=== PATIENT | male | born 1955 | race Caucasian/White ===

== ENCOUNTER 2019-10-16 14:25 | Inpatient (IN) ==
[2019-10-16] MEDS ORDERED: SODIUM CHLORIDE 0.9% 1000ML 2,000 ML IV ONE (14:41)
--- NOTE | 2019-10-16 14:41 | Emergency Department Note ---
Impression & Plan Sepsis, Fall, Elevated lactic acid level, Weakness ED Provider Note NAME: SABINO MAK AGE: 64 SEX: M : 1955 ARRIVES VIA: Ambulance INFORMANT: Patient ED PROVIDER(S): Gama Moss DO CHIEF COMPLAINT: fall feeling weak HPI: Patient is a 64-year-old male who presents the ER for a fall. He was getting out of his lift chair and fell down onto his knees and right elbow. He notes that he has felt weak. He did admit to some mild nausea. No vomiting. No headache or neck pain. Denies hitting his head. No chest pain, cough or runny nose. Denies any fevers. No open wounds or sores. No other exacerbating or remitting factors. Patient denies any headache, neck pain, dysuria urgency or frequency. No other complaints at this time. ROS: See above HPI for pertinent positives & negatives. A total of 10 systems reviewed and were otherwise negative. PAST MEDICAL HISTORY:See Below PAST SURGICAL HISTORY:See Below FAMILY HISTORY:See Below SOCIAL HISTORY:See Below HOME MEDICATIONS:See Below ALLERGIES:See Below VITALS:See Below PHYSICAL EXAMINATION: GENERAL: Sitting up in bed, alert, obese, disheveled, nontoxic HEAD: NC/AT EYE EXAM: normal conjunctiva. PERRL and EOM's grossly intact. OROPHARYNX: no exudate, no erythema, lips, buccal mucosa, and tongue normal and mucous membranes are moist NECK: supple, no nuchal rigidity, no adenopathy, non-tender LUNGS: Clear to auscultation. Normal chest wall mechanics HEART: no murmurs, S1 normal and S2 normal ABDOMEN: abdomen soft, non-tender, normo-active bowel sounds, no masses, no rebound or guarding. BACK: Back is symmetrical on inspection and there is no deformity, no midline tenderness, no CVA tenderness. SKIN: no rashes and no bruising UPPER EXTREMITIES: Full active and passive range of motion of shoulders, elbows, wrists and digits. Abrasion over right elbow with a small bruising. LOWER EXTREMITIES: Full active and passive range of motion of bilateral hips, knees, ankles and EHL. Abrasions over bilateral knees. No bleeding. NEURO EXAM: Normal sensorium, cranial nerves II-XII grossly intact, normal speech, no gross weakness of arms, no gross weakness of legs. MEDICAL DECISION MAKING: Patient is a 64-year-old male who presents the ER for mechanical fall for weakness. Upon presentation IV wasblood work was obtained. Vitals show that he was tachycardic in the 120s and febrile. Labs shows a leukocytosis of 19,000. No significant anemia. INR was unremarkable. BMP with mild hypokalemia. Lactate was elevated 2.6. Troponin was elevated 0.115. UA with nitrates, white cells and bacteria. X-rays of his bilateral knees and elbow show no acute fractures. CT abdomen pelvis shows no acute pathology. Patient was given IV fluids and IV Zosyn. He was updated bedside. Discussed the hospitalist patient was admitted for sepsis secondary to UTI with demand ischemia. Triage Nursing notes reviewed. Prior medical records reviewed Vital Signs: reviewed and remarkable for febrile and tachycardic Differential diagnosis: Differential diagnosis includes etiologies such as sepsis, UTI, pneumonia, metabolic, electrolyte abnormalities, cardiac sources, intracerebral event, toxicologic, neurological, as well as others were entertained. ER treatment provided: See below Diagnostics interpreted by me: ECG: Sinus tachycardia rate of 123 Left axis T WI in high lateral leads Normal QTC No old to compare Cardiac Monitoring: An order was placed for continuous cardiac monitoring. The monitor shows a rate of 101 with sinus rhythm. Laboratory studies: As stated above and show below. Imaging studies: CT abdomen pelvis shows no acute pathology. X-rays of the bilateral knees and right elbow shows no fracture. Consultation(s): Discussed with Dr. Olga Raphael for admission. ED COURSE: Procedures: none Critical Care: I have personally spent 31 minutes of critical care time in the direct management of this patient. This includes bedside care, interpretation of diagnostic studies, and testing, discussion with consultants, patient, and family members, and other required patient management activities. This 31 minutes is in excess of all separately billable procedures. Past Med/Surg History Medical History Anxiety and depression BPH (benign prostatic hyperplasia) Deep vein thrombosis 2009 (WAS ON COUMADIN, UNSURE OF REASON) Degenerative disc disease Diabetes mellitus, type 2 GERD (gastroesophageal reflux disease) Gout Hyperlipidemia Hypertension Macular degeneration Osteoarthritis Peripheral neuropathy Poor historian PVD (peripheral vascular disease) WEARS STOCKINGS Sleep apnea CPAP Surgical History History of appendectomy History of colonoscopy History of esophagogastroduodenoscopy (EGD) History of right cataract extraction History of tonsillectomy History of tooth extraction Family History Other Unknown family medical history Social History Preferred Language: Faroese Communication Ability: Impaired 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 Beliefs That Will Affect Care: None Current Living Situation: Alone Other Information That Helps Us Care for You: No Feels Safe at Home: Yes Safety Concerns: Feels Safe At This Time Smoking Status: Never smoker Second Hand Exposure: No ; Hx Alcohol Use: No Hx Substance Use: No Allergies Allergies Allergy/AdvReac Type Severity Reaction Status Date / Time latex Allergy Severe "CAN'T Verified 10/16/19 15:02 BREATHE" ibuprofen Allergy Mild STOMACH Verified 10/16/19 15:02 UPSET Home Meds Home Medications Medication Instructions Recorded Confirmed Durezol 1 drp OPR QAM 01/18/19 10/16/19 Gralise 1,800 mg PO QAM 01/18/19 10/16/19 [place]-3 2 cap PO BID 01/18/19 10/16/19 Tradjenta 5 mg PO DAILY 01/18/19 10/16/19 atorvastatin 40 mg PO HS 01/18/19 10/16/19 calcium carbonate [Tums] 200 mg PO BID PRN 01/18/19 10/16/19 fluticasone propionate 1 spray INTRANASAL DAILY 01/18/19 10/16/19 meloxicam 15 mg PO DAILY 01/18/19 10/16/19 oxybutynin chloride 5 mg PO BID 01/18/19 10/16/19 triamcinolone acetonide 1 applic TOPICAL DIRECTED 10/16/19 10/16/19 valsartan-hydrochlorothiazide 1 tab PO QAM 10/16/19 10/16/19 [Diovan HCT] Results & Data (ED) Vital Signs Vital Signs - 24 hr 10/16/19 14:43 10/16/19 14:56 10/16/19 15:33 Temperature 38.3 C H Temperature Source Oral Pulse Rate 112 H 103 H Pulse Rate from SpO2 Sensor 105 H Respiratory Rate 16 24 Respiratory Effort / Characteristics Non-Labored Spontaneous Respiratory Depth Normal Respiratory Pattern Regular Blood Pressure 113/58 L 95/51 L Blood Pressure Mean 76 70 Blood Pressure Position Lying Pulse Oximetry 93 93 93 Oxygen Delivery Method Room Air Room Air Sepsis Recent Fever Within 48 Hours Yes Sepsis New/Unexplained Change in Mental Status No Sepsis Action Taken by Nursing No Action Required 10/16/19 15:40 10/16/19 16:30 10/16/19 16:36 Temperature 37.6 C H Temperature Source Oral Pulse Rate 108 H 97 H Pulse Rate from SpO2 Sensor 95 H Respiratory Rate 24 22 Respiratory Effort / Characteristics Respiratory Depth Respiratory Pattern Blood Pressure 122/65 109/70 Blood Pressure Mean 84 88 Blood Pressure Position Pulse Oximetry 95 94 Oxygen Delivery Method Sepsis Recent Fever Within 48 Hours Sepsis New/Unexplained Change in Mental Status Sepsis Action Taken by Nursing 10/16/19 17:00 10/16/19 17:30 10/16/19 18:00 Temperature Temperature Source Pulse Rate 91 H 90 90 Pulse Rate from SpO2 Sensor 90 Respiratory Rate 24 26 H 30 H Respiratory Effort / Characteristics Respiratory Depth Respiratory Pattern Blood Pressure 126/58 L 111/57 L 116/54 L Blood Pressure Mean 79 67 82 Blood Pressure Position Pulse Oximetry 93 92 92 Oxygen Delivery Method Sepsis Recent Fever Within 48 Hours Sepsis New/Unexplained Change in Mental Status Sepsis Action Taken by Nursing 10/16/19 18:18 Temperature 37.1 C Temperature Source Pulse Rate Pulse Rate from SpO2 Sensor Respiratory Rate Respiratory Effort / Characteristics Respiratory Depth Respiratory Pattern Blood Pressure Blood Pressure Mean Blood Pressure Position Pulse Oximetry Oxygen Delivery Method Sepsis Recent Fever Within 48 Hours Sepsis New/Unexplained Change in Mental Status Sepsis Action Taken by Nursing Laboratory Data Result diagrams: 10/16/19 14:55 10/16/19 14:55 Lab Results 10/16/19 10/16/19 10/16/19 Range/Units 14:55 14:55 14:55 WBC 19.24 H (4.8-10.8) K/uL RBC 4.70 (4.7-6.1) M/uL Hgb 15.3 (14.0-18.0) g/dL Hct 42.7 (42-52) % MCV 90.9 (80-100) fL MCH 32.6 (25-34) pg MCHC 35.8 (32-36) g/dL RDW Std Deviation 40.7 (36.4-46.3) fL RDW Coeff of Lizzy 12.2 (11.5-14.5) % Plt Count 163 (130-400) K/uL MPV 10.2 (7.4-10.4) fL Immature Gran % (Auto) 0.4 % Neut % (Auto) 87.9 % Lymph % (Auto) 3.2 % [place] % (Auto) 8.4 % Eos % (Auto) 0.0 % Baso % (Auto) 0.1 % Neut # (Auto) 16.93 H (1.4-6.5) K/uL Lymph # (Auto) 0.62 L (1.2-3.4) K/uL [place] # (Auto) 1.61 H (0.11-0.59) K/uL Eos # (Auto) 0.00 (0-0.5) K/uL Baso # (Auto) 0.01 (0-0.2) K/uL Immature Gran # (Auto) 0.07 H (0.00-0.02) K/uL PT 11.9 (9.0-12.0) Seconds INR 1.1 (0.9-1.1) APTT 27.6 (21.0-31.0) Seconds PTT Ratio 1.0 Sodium 135 L (136-145) mmol/L Potassium 3.2 L (3.5-5.1) mmol/L Chloride 103 (98-107) mmol/L Carbon Dioxide 24 (21-32) mmol/L Anion Gap 8.0 (3-11) BUN 14 (7-18) mg/dl Creatinine 1.06 (0.6-1.4) mg/dl Est Cr Clr Drug Dosing 111.7 ml/min Est GFR ( Amer) 84.3 Est GFR (Non-Af Amer) 72.8 BUN/Creatinine Ratio 13.1 (10-20) Glucose 142 H (70-99) mg/dl Lactate (0.4-2.0) mmol/L Calcium 8.8 (8.5-10.1) mg/dl Magnesium 1.6 L (1.8-2.4) mg/dl Total Bilirubin 1.0 (0.2-1) mg/dl AST 26 (15-37) U/L ALT 36 (12-78) U/L Alkaline Phosphatase 65 (45-117) U/L Troponin I 0.115 H* (0-0.045) ng/ml Total Protein 7.5 (6.4-8.2) gm/dl Albumin 3.4 (3.4-5.0) gm/dl Globulin 4.1 H (2.5-4.0) gm/dl Albumin/Globulin Ratio 0.8 L (0.9-2) 10/16/19 10/16/19 Range/Units 14:55 17:18 WBC (4.8-10.8) K/uL RBC (4.7-6.1) M/uL Hgb (14.0-18.0) g/dL Hct (42-52) % MCV (80-100) fL MCH (25-34) pg MCHC (32-36) g/dL RDW Std Deviation (36.4-46.3) fL RDW Coeff of Lizzy (11.5-14.5) % Plt Count (130-400) K/uL MPV (7.4-10.4) fL Immature Gran % (Auto) % Neut % (Auto) % Lymph % (Auto) % [place] % (Auto) % Eos % (Auto) % Baso % (Auto) % Neut # (Auto) (1.4-6.5) K/uL Lymph # (Auto) (1.2-3.4) K/uL [place] # (Auto) (0.11-0.59) K/uL Eos # (Auto) (0-0.5) K/uL Baso # (Auto) (0-0.2) K/uL Immature Gran # (Auto) (0.00-0.02) K/uL PT (9.0-12.0) Seconds INR (0.9-1.1) APTT (21.0-31.0) Seconds PTT Ratio Sodium (136-145) mmol/L Potassium (3.5-5.1) mmol/L Chloride (98-107) mmol/L Carbon Dioxide (21-32) mmol/L Anion Gap (3-11) BUN (7-18) mg/dl Creatinine (0.6-1.4) mg/dl Est Cr Clr Drug Dosing ml/min Est GFR ( Amer) Est GFR (Non-Af Amer) BUN/Creatinine Ratio (10-20) Glucose (70-99) mg/dl Lactate 2.8 H* 2.6 H* (0.4-2.0) mmol/L Calcium (8.5-10.1) mg/dl Magnesium (1.8-2.4) mg/dl Total Bilirubin (0.2-1) mg/dl AST (15-37) U/L ALT (12-78) U/L Alkaline Phosphatase (45-117) U/L Troponin I (0-0.045) ng/ml Total Protein (6.4-8.2) gm/dl Albumin (3.4-5.0) gm/dl Globulin (2.5-4.0) gm/dl Albumin/Globulin Ratio (0.9-2) Administered Medications Discontinued Medications Acetaminophen (Tylenol) 1,000 mg PO NOW STA Stop: 10/16/19 16:31 Last Admin: 10/16/19 16:36 Dose: 1,000 mg Documented by: [id number] Sodium Chloride (Nss 1000ml) 2,000 mls @ 999 mls/hr IV .Q2H1M ONE Stop: 10/16/19 16:41 Last Infusion: 10/16/19 16:57 Dose: 0 mls/hr Documented by: [id number] Admin: 10/16/19 14:56 Dose: 999 mls/hr Documented by: [id number] Piperacillin Sod/Tazobactam Sod (Zosyn) 4.5 gm in 120 mls @ 240 mls/hr IV NOW ONE; Protocol Stop: 10/16/19 16:13 Last Infusion: 10/16/19 17:02 Dose: 0 mls/hr Documented by: [id number] Admin: 10/16/19 16:32 Dose: 240 mls/hr Documented by: [id number] Discharge Plan Visit Data Chief Complaint: Fall ED Provider: Gama Moss Discharge Problem: Sepsis, Fall, Elevated lactic acid level, Weakness Patient Disposition: Admitted As Inpatient Discharge Instructions Interventions: ED Discharge Assessment Last Done: 10/16/19 19:23 Discharge Problem: Sepsis Qualifiers: Sepsis type: sepsis due to unspecified organism Sepsis acute organ dysfunction status: unspecified Qualified Code(s): A41.9 - Sepsis, unspecified organism Fall Qualifiers: Encounter type: initial encounter Qualified Code(s): W19.XXXA - Unspecified fall, initial encounter
[2019-10-16 15:17] LABS: Basophils # (auto) 0.01 K/uL (0-0.2); Basophils % (auto) 0.1 %; Hematocrit (blood only) 42.7 % (42-52); Hemoglobin 15.3 g/dL (14.0-18.0); Immature Granulocytes # (auto) 0.07 K/uL (0.00-0.02); Immature Granulocytes % (auto) 0.4 %; Lymphocytes # (auto) 0.62 K/uL (1.2-3.4); Lymphocytes % (auto) 3.2 %; Mean Corpuscular Hemoglobin 32.6 pg (25-34); Mean Corpuscular Hgb Conc 35.8 g/dL (32-36); Mean Corpuscular Volume 90.9 fL (80-100); Mean Platelet Volume 10.2 fL (7.4-10.4); Monocytes # (auto) 1.61 K/uL (0.11-0.59); Monocytes % (auto) 8.4 %; Neutrophils # (auto) 16.93 K/uL (1.4-6.5); Neutrophils % (auto) 87.9 %; Platelet Count 163 K/uL (130-400); RDW Coefficient of Variation 12.2 % (11.5-14.5); RDW Standard Deviation 40.7 fL (36.4-46.3); White Blood Count 19.24 K/uL (4.8-10.8)
--- NOTE | 2019-10-16 15:27 | XRay Report ---
XR knee LT 1 or 2V routine CLINICAL HISTORY: Left knee pain status post trauma COMPARISON: None DISCUSSION: There is moderately advanced 3 compartment osteoarthritis. No acute fractures are visuali zed. IMPRESSION: 1. No acute fractures 2. Advanced osteoarthritis ACT 112: Negative or not required by law. Electronically signed by: Kranthi Cueto M.D. 10/16/2019 3:26 PM
--- NOTE | 2019-10-16 15:27 | XRay Report ---
XR chest 1V portable CLINICAL HISTORY: SEPSIS COMPARISON STUDY: No previous studies for comparison. FINDINGS: The heart is enlarged. There is a thoracic scoliosis. There is mild elevation right hemidia phragm. There is no focal pulmonary consolidation. There are no pleural effusions.[Mild increased mar kings at the left lung base are felt to be related to technical factors. IMPRESSION: Mild cardiomegaly. No acute findings. ACT 112: Negative or not required by law. Electronically signed by: Kranthi Cueto M.D. 10/16/2019 3:25 PM
--- NOTE | 2019-10-16 15:27 | XRay Report ---
XR knee RT 1 or 2V routine CLINICAL HISTORY: fall b/l knee pain trauma. Pain. COMPARISON: None. DISCUSSION: Significant degenerative change all major joint compartments. No evidence for fracture or dislocation. Mild reactive osteophytic formation throughout. There is no evidence for soft tissue sw elling. IMPRESSION: Degenerative change throughout all major joint compartments. No acute posttraumatic abnor mality. ACT 112: Negative or not required by law. The above report was generated using voice recognition software. It may contain grammatical, syntax or spelling errors. Electronically signed by: Arnie Painter M.D. 10/16/2019 3:26 PM
--- NOTE | 2019-10-16 15:28 | XRay Report ---
XR elbow RT min 3V routine CLINICAL HISTORY: r elbow pain trauma. Pain. COMPARISON: None. DISCUSSION: Mild degenerative change of all major joint compartments. Moderate reactive osteophytic c hange. No significant joint effusion. No evidence for fracture or dislocation. There is no evidence for soft tissue swelling. IMPRESSION: Degenerative change. No acute bony abnormality. ACT 112: Negative or not required by law. The above report was generated using voice recognition software. It may contain grammatical, syntax or spelling errors. Electronically signed by: Arnie Painter M.D. 10/16/2019 3:27 PM
[2019-10-16 15:30] LABS: Albumin Level 3.4 gm/dl (3.4-5.0); BUN Creatinine Ratio 13.1 (10-20); Calcium 8.8 mg/dl (8.5-10.1); Creatinine Clr Calc Pharmacy 111.7 ml/min; Est GFR (African American) 84.3; Est GFR (Non-African American) 72.8; INR 1.1 (0.9-1.1); Magnesium 1.6 mg/dl (1.8-2.4); Partial Thromboplastin Time 27.6 Seconds (21.0-31.0); Potassium 3.2 mmol/L (3.5-5.1); Prothrombin Time 11.9 Seconds (9.0-12.0)
[2019-10-16 15:38] LABS: Albumin Globulin Ratio 0.8 (0.9-2); Globulin 4.1 gm/dl (2.5-4.0); Total Protein 7.5 gm/dl (6.4-8.2); Troponin I 0.115 ng/ml (0-0.045)
[2019-10-16] MEDS ORDERED: PIPERACILLIN/TAZOBACTAM 4.5 GM/120 ML BAG IV ONE ×2 (15:44→19:47)
[2019-10-16] MEDS ORDERED: PIPERACILL/TAZOBAC CONSULT ACTIVE PRN ×2 (15:44→19:47)
--- NOTE | 2019-10-16 16:21 | CT Scan Report ---
CT SCAN OF THE ABDOMEN AND PELVIS WITHOUT CONTRAST CLINICAL HISTORY: abd pain sepsis COMPARISON STUDY: No previous studies for comparison. TECHNIQUE: CT scan of the abdomen and pelvis was performed from the lung bases to the proximal femurs . Images are reviewed in the axial, sagittal, and coronal planes. IV contrast was not administered fo r this examination. A dose lowering technique was utilized adhering to the principles of ALARA. CT DOSE: 4516.27 mGy.cm FINDINGS: Lower chest: The heart is normal in size and configuration, without pericardial effusion. The lung ba ses and pleural spaces are clear. Liver: There is mild hepatomegaly. No focal masses are visualized in this noncontrast study. Gallbladder: Unremarkable. Spleen: Normal in size and attenuation. Pancreas: Unremarkable. Adrenal glands: Unremarkable. Kidneys: No renal, ureteral, or bladder calculi are visualized. There is minimal bilateral perinephri c stranding. Bowel: There are no transition zones indicate bowel obstruction. There is no evidence of acute divert iculitis. The appendix is surgically absent. Peritoneum: There is a fat-containing umbilical hernia. Vasculature: The abdominal aorta is normal in course and caliber. Adenopathy: None. Pelvic viscera: There is mild distention of the urinary bladder. Skeletal structures: There are multilevel degenerative changes. No destructive lesions are visualized . The examination is limited from a technical standpoint due to morbid obesity IMPRESSION: 1. No evidence of bowel obstruction. No evidence of free air 2. Surgically absent appendix 3. No evidence of acute diverticulitis 4. Fat-containing umbilical hernia 5. Mild hepatomegaly 6. Mildly distended urinary bladder 7. No renal, ureteral, or bladder calculi identified ACT 112: Negative or not required by law. Electronically signed by: Kranthi Cueto M.D. 10/16/2019 4:20 PM
[2019-10-16] MEDS ORDERED: ACETAMINOPHEN 500 MG TAB PO STA (16:30)
--- NOTE | 2019-10-16 17:30 | Electrocardiogram Report ---
Test Reason : Blood Pressure : / mmHG Vent. Rate : 109 BPM Atrial Rate : 109 BPM P-R Int : 192 ms QRS Dur : 118 ms QT Int : 354 ms P-R-T Axes : 039 -48 082 degrees QTc Int : 476 ms Sinus tachycardia Left anterior fascicular block Left ventricular hypertrophy with QRS widening and repolarization abnormality Abnormal ECG No previous ECGs available Confirmed by Vaughn Luz ([id number]) on 10/16/2019 5:30:03 PM Referred By: REFERRED SELF Confirmed By:Jaime Luz
--- NOTE | 2019-10-16 18:43 | History & Physical Report ---
Date of Service October 16, 2019 Assessment & Plan (1) Sepsis: Uncertain source, possibly urine given distended bladder seen on CTAP UA pending CXR neg for acute Blood cx pending Feels improved on zosyn, continue Elevated WBC, febrile Elevated lactic acid, repeat pending Low risk for COVID, no testing done (2) Elevated troponin: 0.115, serials pending EKG sinus tachy Tele monitor No cardiac sx CXR neg for acute Elevated WBC and electrolyte abn as noted Neg for anemia t/c ECHO in AM (3) Fall: PT/OT pending Last fall was a year ago Has in home aides at baseline b/l knee and R elbow XR neg Did not hit head, no syncope (4) Hypomagnesemia: Replace IV and monitor (5) Hypokalemia: Replace and monitor (6) Diabetes mellitus, type 2: Holding home meds SSI PRN No home insulin use A1c pending (7) Hyperlipidemia: Holding home meds for nausea (8) GERD (gastroesophageal reflux disease): continue home meds (9) Peripheral neuropathy: continue home meds (10) Deep vein thrombosis: Hx of DVT in LLE 2009 No current anticoagulation Monitor (11) Sleep apnea: CPAP as at home (12) DVT prophylaxis: Heparin for DVT proph History of Present Illness Primary Care Provider: Gabreilla Maher 64 y/o M c/o weakness and fall. Pt states that he had a normal day yesterday and was having a normal day today when he was attempting to ambulate from his lift chair and had sudden onset of weakness and lightheadedness. He felt at that time. He landed on his LE and R UE. He did not hit his head. He did not pass out. He had no issues with this transfer prior outside of a similar episode a year ago. He states he has in home aides daily. The one in his home made his breakfast today and he ate waffles, etc without issue. He feels a bit nauseated now. No emesis. He states he felt like he had a fever just prior to arrival to the ED, but none prior to this. Pt denies SOB, chest pain, abd pain, v/c/d, LE pain or swelling. He has had no cough or body aches. No sick contacts. No recent travel. He denies burning with urination but states that his urination is overall low. He does take medication for an overactive bladder, but feels that he is urinating less than usual. Pt says he feels a bit better s/p IVF and abx in the ED. He has not been able to give a urine sample yet. He has not been OOB. His nausea is less and he does not feel febrile now. Pt states that he came to the ED and was admitted for his fall last year. He does not know if there was any sort of other dx for this. There are no records of this in our system. Pt states he does not know his FH. Allergies Allergy/AdvReac Type Severity Reaction Status Date / Time latex Allergy Severe "CAN'T Verified 10/16/19 15:02 BREATHE" ibuprofen Allergy Mild STOMACH Verified 10/16/19 15:02 UPSET Home Medications Home Medications Medication Instructions Recorded Confirmed Type Durezol 1 drp OPR QAM 01/18/19 10/16/19 History Gralise 1,800 mg PO QAM 01/18/19 10/16/19 History [place]-3 2 cap PO BID 01/18/19 10/16/19 History Tradjenta 5 mg PO DAILY 01/18/19 10/16/19 History atorvastatin 40 mg PO HS 01/18/19 10/16/19 History calcium carbonate [Tums] 200 mg PO BID PRN 01/18/19 10/16/19 History fluticasone propionate 1 spray INTRANASAL DAILY 01/18/19 10/16/19 History meloxicam 15 mg PO DAILY 01/18/19 10/16/19 History oxybutynin chloride 5 mg PO BID 01/18/19 10/16/19 History triamcinolone acetonide 1 applic TOPICAL DIRECTED 10/16/19 10/16/19 History valsartan-hydrochlorothiazide 1 tab PO QAM 10/16/19 10/16/19 History [Diovan HCT] Past Med/Surg History Medical History Anxiety and depression BPH (benign prostatic hyperplasia) Deep vein thrombosis 2009 (WAS ON COUMADIN, UNSURE OF REASON) Degenerative disc disease Diabetes mellitus, type 2 GERD (gastroesophageal reflux disease) Gout Hyperlipidemia Hypertension Macular degeneration Osteoarthritis Peripheral neuropathy Poor historian PVD (peripheral vascular disease) WEARS STOCKINGS Sleep apnea CPAP Surgical History History of appendectomy History of colonoscopy History of esophagogastroduodenoscopy (EGD) History of right cataract extraction History of tonsillectomy History of tooth extraction Family History Other Unknown family medical history Social History Preferred Language: Cypriot Communication Ability: Impaired Supervisor Roving Department Required: No Beliefs That Will Affect Care: None Current Living Situation: Alone Other Information That Helps Us Care for You: No Feels Safe at Home: Yes Safety Concerns: Feels Safe At This Time Smoking Status: Never smoker Second Hand Exposure: No ; Hx Alcohol Use: No Hx Substance Use: No Review of Systems Review of Systems: Pertinent positives and negatives reviewed in HPI--all others negative Physical Exam Constitutional: WD/WN, vitals as above Eyes: normal visual pérez by confrontation and + anicteric sclerae Neck: normal visual inspection and trachea midline Respiratory: normal respiratory effort, lungs clear to auscultation Cardiovascular: Rate/Rhythm: regular rate and regular rhythm Gastrointestinal (Abdomen): Inspection/Auscultation: abdomen not distended Percussion/Palpation: abdomen soft; abdomen nontender Musculoskeletal: Head/Neck/Chest: normocephalic and head atraumatic negative for edema, peripheral pulses intact Skin: no rashes, warm and dry abrasions noted on L toes and R elbow Neurologic: awake; not confused Speech / Cognition: normal speech Psychiatric: A+Ox3, euthymic affect Results & Data Results & Data ([facility]) Vital Signs (Past 12 Hours) Vital Signs Temp Pulse Resp BP Pulse Ox 10/16/19 18:18 37.1 C 10/16/19 18:00 90 30 H 116/54 L 92 10/16/19 17:30 90 26 H 111/57 L 92 10/16/19 17:00 91 H 24 126/58 L 93 10/16/19 16:36 37.6 C H 10/16/19 16:30 97 H 22 109/70 94 10/16/19 15:40 108 H 24 122/65 95 10/16/19 15:33 103 H 24 95/51 L 93 10/16/19 14:56 93 10/16/19 14:43 38.3 C H 112 H 16 113/58 L 93 Diagnostic Findings CTAP: distended bladder L/R knee XR: neg for acute R elbow XR: neg for acute CXR: neg for acute ECG Rhythm: sinus tachycardia Code Status & VTE Plan Code Status Full code VTE Prophylaxis Plan VTE Prophylaxis will be ordered: Yes PG Care Time/CCT Total # of Minutes Spent Total Time Spent with Patient: Total time spent is greater than 50% in coordination of care (as documented) at patient's floor/unit and/or counseling patient: Coding Level of Care Code 18341 Initial Inpt Care Lvl 3 Diagnoses Sepsis A41.9 Elevated troponin R79.89 Fall W19.XXXA Hypomagnesemia E83.42 Hypokalemia E87.6 Diabetes mellitus, type 2 E11.9 Hyperlipidemia E78.5 GERD (gastroesophageal reflux disease) K21.9 Peripheral neuropathy G62.9 Deep vein thrombosis I82.409 Sleep apnea G47.30 DVT prophylaxis Z29.9
[2019-10-16 19:18] LABS: Appearance Urine Clear (Clear); Bacteria Urine Automated 2+ (Negative); Bilirubin Urine Negative (Negative); Blood Urine 1+ (Negative); Color Urine Yellow; Glucose Urine UA Negative (Negative); Ketones Urine Negative (Negative); Leukocyte Esterase Urine Negative (Negative); Nitrite Urine Positive (Negative); Protein Urine 1+ (Negative); RBC Urine Automated 0-4 /hpf (0-4); Specific Gravity Urine 1.013 (1.000-1.030); Urobilinogen Urine Negative (Negative)
[2019-10-16] MEDS ORDERED: POTASSIUM PHOS 3 MMOL/1 ML INFUSION IV STA (19:47)
[2019-10-16] MEDS ORDERED: MAGNESIUM HYDROXIDE SUSP 30 ML UDC PO PRN (19:47)
[2019-10-16] MEDS ORDERED: ONDANSETRON INJ 2 MG/ML 2 ML VIAL IV PRN (19:47)
[2019-10-16] MEDS ORDERED: POTASSIUM PHOSPHATE 15 MMOL in SODIUM CHLORIDE 0.9% 250 ML IV STA (20:06)
[2019-10-16] MEDS: NSS + 20MEQ KCL 20 MEQ/1,000 ML BAG IV SCH (20:59)
[2019-10-16] MEDS: MAGNESIUM SULFATE / D5W 1 GM/100 ML BAG IV SCH ×2 (21:23→23:22)
[2019-10-16] MEDS: PIPERACILLIN/TAZOBACTAM 4.5 GM in DEXTROSE 5% 100 ML IV SCH (21:27)
[2019-10-16] MEDS: TRIAMCINOLONE ACET 0.1% CR 15 GM TUBE TOP SCH (21:28)
[2019-10-16] MEDS: HEPARIN SOD 5,000 UNIT/0.5 ML VIAL SQ SCH (22:21)
[2019-10-17 02:36] LABS: Hematocrit (blood only) 39.2 % (42-52); Hemoglobin 13.9 g/dL (14.0-18.0); Mean Corpuscular Hemoglobin 32.4 pg (25-34); Mean Corpuscular Hgb Conc 35.5 g/dL (32-36); Mean Corpuscular Volume 91.4 fL (80-100); Mean Platelet Volume 10.3 fL (7.4-10.4); Platelet Count 167 K/uL (130-400); RDW Coefficient of Variation 12.5 % (11.5-14.5); RDW Standard Deviation 41.8 fL (36.4-46.3); Red Blood Count 4.29 M/uL (4.7-6.1); White Blood Count 26.68 K/uL (4.8-10.8)
[2019-10-17 02:54] LABS: BUN Creatinine Ratio 15.8 (10-20); Basophils # (auto) 0.02 K/uL (0-0.2); Basophils % (auto) 0.1 %; Calcium 7.8 mg/dl (8.5-10.1); Creatinine Clr Calc Pharmacy 110.6 ml/min; Est GFR (African American) 83.4; Immature Granulocytes # (auto) 0.18 K/uL (0.00-0.02); Immature Granulocytes % (auto) 0.7 %; Lymphocytes # (auto) 1.19 K/uL (1.2-3.4); Lymphocytes % (auto) 4.5 %; Magnesium 1.9 mg/dl (1.8-2.4); Monocytes # (auto) 2.07 K/uL (0.11-0.59); Monocytes % (auto) 7.8 %; Neutrophils # (auto) 23.22 K/uL (1.4-6.5); Neutrophils % (auto) 86.9 %; Potassium 3.3 mmol/L (3.5-5.1)
[2019-10-17 03:02] LABS: Phosphorus 3.4 mg/dl (2.5-4.9); Troponin I 0.207 ng/ml (0-0.045)
[2019-10-17] MEDS: PIPERACILLIN/TAZOBACTAM 4.5 GM in DEXTROSE 5% 100 ML IV SCH ×3 (04:49→20:08)
[2019-10-17] MEDS: HEPARIN SOD 5,000 UNIT/0.5 ML VIAL SQ SCH ×3 (04:50→20:09)
[2019-10-17] MEDS ORDERED: MICONAZOLE NITRATE POWDER 43 GM EXT PRN (04:55)
[2019-10-17 05:55] LABS: Estimated Average Glucose 134 mg/dl; Hemoglobin A1C 6.3 % (4.5-5.6)
[2019-10-17] MEDS: VALSARTAN 80 MG TAB PO SCH (08:05)
[2019-10-17] MEDS: MELOXICAM 7.5 MG TAB PO SCH (08:05)
[2019-10-17] MEDS: hydroCHLOROthiazide 25 MG TAB PO SCH (08:06)
[2019-10-17] MEDS: TRIAMCINOLONE ACET 0.1% CR 15 GM TUBE TOP SCH ×2 (08:07→20:09)
[2019-10-17] MEDS: FLUTICASONE PROPIONATE NA SPR 16 GM BTL SCH (08:07)
--- NOTE | 2019-10-17 08:35 | Hospitalist Progress Note ---
Date of Service October 17, 2019 Assessment & Plan (1) Sepsis: Uncertain source, possibly urine given distended bladder seen on CTAP Probable UTI UA preliminarily suggests Pseudomonas, Blood cx initially presented gram- positive bacilli CXR neg for acute changes continue zosyn consider changing to a quinolone or 'Pentam pending sensitivities Low risk for COVID, no testing done (2) Elevated troponin: 0.115, EKG sinus tachy Likely demand ischemia in the face of illness (3) Fall: PT/OT pending Last fall was a year ago Has in home aides at baseline b/l knee and R elbow XR neg Did not hit head, no syncope Morbid obesity is likely contributing to falls and injuries (4) Hypomagnesemia: Replace IV and monitor (5) Hypokalemia: Replace and monitor (6) Diabetes mellitus, type 2: Holding home meds SSI PRN No home insulin use A1c 6.3 (7) Hyperlipidemia: Holding home meds for nausea (8) GERD (gastroesophageal reflux disease): Typically not on any home medication he is requesting Maalox (9) Peripheral neuropathy: (10) Deep vein thrombosis: Hx of DVT in LL2009 No current anticoagulation Monitor (11) Sleep apnea: CPAP as at home (12) DVT prophylaxis: Heparin for DVT proph Admission and Anticipated Discharge Date Admission Date: October 16, 2019 Subjective Patient is various somatic complaints mostly centered on his foot pain and disc omfort. He feels he is assured he is got a urinary tract infection and he does receive validation as a pop probable Pseudomonas species his preliminary report on his urine culture Other than that he is generally weak and tired Review of Systems Review of Systems: Moderate distress and fatigue no headache, blurry or double vision no speech or swallowing issues no chest pain, pressure or palpitations no shortness of breath, cough or wheezes Suprapubic abdominal pain, nausea or vomiting, diarrhea or constipation no dysuria, hematuria or frequency Complains of pain to both feet he is obvious bunions and hammertoe deformity seen no back pain, no CVA tenderness or radicular pain no bruising, bleeding or rashes no focal signs of weakness or numbness or altered sensation no complaints or anxiety or depression. Physical Exam Physical Exam: The patient appeared well nourished and normally developed. Patient is morbidly obese with a BMI of 56 Vital signs as documented. Head exam is normocephalic atraumatic no scleral icterus Neck is without JVD, thyromegaly, or carotid bruits. Lungs are clear to auscultation, no focal loss of breath sounds Cardiac exam, Rhythm is regular.. No murmurs, rubs or gallops. Abdominal exam reveals normal bowel sounds, soft non tender, no masses Extremities are nonedematous and both feet show orthopedic deformities including bunions and hammertoes Neurologic exam is alert and oriented, no focal loss of strength or sensation globally weak however Skin is without bruises or rashes Psychologically is without concerns for anxiety or depression Results & Data Results & Data ([facility]) Vital Signs (Past 12 Hours) Vital Signs Temp Pulse Pulse Resp BP BP Pulse Ox 10/17/19 07:38 82 10/17/19 07:32 99.7 F H 81 18 127/68 93 10/17/19 04:27 97.9 F 75 18 117/64 94 10/17/19 02:23 85 20 95 10/16/19 23:59 85 10/16/19 23:00 99.3 F 71 22 130/67 95 10/16/19 22:25 82 18 96 PG Care Time/CCT Total # of Minutes Spent Total Time Spent with Patient: Total time spent is greater than 50% in coordination of care (as documented) at patient's floor/unit and/or counseling patient: Coding Level of Care Code 03892 Subseq Hosp Care Lvl 3 Diagnoses Sepsis A41.9 Elevated troponin R79.89 Fall W19.XXXA Hypomagnesemia E83.42 Hypokalemia E87.6 Diabetes mellitus, type 2 E11.9 Hyperlipidemia E78.5 GERD (gastroesophageal reflux disease) K21.9 Peripheral neuropathy G62.9 Deep vein thrombosis I82.409 Sleep apnea G47.30 DVT prophylaxis Z29.9
[2019-10-17] MEDS: NSS + 20MEQ KCL 20 MEQ/1,000 ML BAG IV SCH ×2 (08:50→20:08)
[2019-10-17] MEDS: ACETAMINOPHEN 325 MG TAB PO PRN (10:25)
[2019-10-17] MEDS: DICLOFENAC SOD 1% GEL 100 GM TUBE EXT SCH (20:09)
[2019-10-18] MEDS: PIPERACILLIN/TAZOBACTAM 4.5 GM in DEXTROSE 5% 100 ML IV SCH ×2 (04:29→12:02)
[2019-10-18] MEDS: HEPARIN SOD 5,000 UNIT/0.5 ML VIAL SQ SCH (05:43)
[2019-10-18] MEDS: VALSARTAN 80 MG TAB PO SCH (08:51)
[2019-10-18] MEDS: hydroCHLOROthiazide 25 MG TAB PO SCH (08:51)
[2019-10-18] MEDS: MELOXICAM 7.5 MG TAB PO SCH (08:52)
[2019-10-18] MEDS: TRIAMCINOLONE ACET 0.1% CR 15 GM TUBE TOP SCH (08:52)
[2019-10-18] MEDS: FLUTICASONE PROPIONATE NA SPR 16 GM BTL SCH (08:52)
[2019-10-18] MEDS: DICLOFENAC SOD 1% GEL 100 GM TUBE EXT SCH ×2 (08:52→09:58)
[2019-10-18] MEDS: NSS + 20MEQ KCL 20 MEQ/1,000 ML BAG IV SCH (08:53)
[2019-10-18] MEDS ORDERED: GABAPENTIN 600 MG TAB PO SCH (09:05)
[2019-10-18] MEDS: ACETAMINOPHEN 325 MG TAB PO PRN (10:14)
--- NOTE | 2019-10-18 15:44 | Discharge Summary ---
Date of Service October 18, 2019 Admission HPI Per Admitting Provider 64 y/o M c/o weakness and fall. Pt states that he had a normal day yesterday and was having a normal day today when he was attempting to ambulate from his lift chair and had sudden onset of weakness and lightheadedness. He felt at that time. He landed on his LE and R UE. He did not hit his head. He did not pass out. He had no issues with this transfer prior outside of a similar episode a year ago. He states he has in home aides daily. The one in his home made his breakfast today and he ate waffles, etc without issue. He feels a bit nauseated now. No emesis. He states he felt like he had a fever just prior to arrival to the ED, but none prior to this. Pt denies SOB, chest pain, abd pain, v/c/d, LE pain or swelling. He has had no cough or body aches. No sick contacts. No recent travel. He denies burning with urination but states that his urination is overall low. He does take medication for an overactive bladder, but feels that he is urinating less than usual. Pt says he feels a bit better s/p IVF and abx in the ED. He has not been able to give a urine sample yet. He has not been OOB. His nausea is less and he does not feel febrile now. Pt states that he came to the ED and was admitted for his fall last year. He does not know if there was any sort of other dx for this. There are no records of this in our system. Pt states he does not know his FH. Principal Diagnosis 1, sepsis 2, Pseudomonas UTI present on admission 3, intertrigo 4, morbid obesity Discharge Exam The patient appeared well Vital signs as documented. Lungs are clear to auscultation and appear unlabored Cardiac exam, Rhythm is regular.. No murmurs, rubs or gallops. Abdominal exam reveals normal bowel sounds, soft non tender, no masses Extremities are nonedematous and both feet have osteoarthritic changes l. Neurologic exam is alert and oriented, no focal loss of strength or sensation Skin is with intertrigo to body folds Psychologically is without concerns for anxiety or depression Discharge Data Allergies Allergy/AdvReac Type Severity Reaction Status Date / Time latex Allergy Severe "CAN'T Verified 10/16/19 15:02 BREATHE" ibuprofen Allergy Mild STOMACH Verified 10/16/19 15:02 UPSET Consultations 10/16/19 16:45 ED Decision to Admit Stat 10/16/19 19:47 Consult Case Management - Discharge Planning Routine Ordered Studies 10/16/19 15:44 CT abd pelvis wo con Stat Hospital Course (1) Sepsis: Urine culture confirmed Pseudomonas urinary tract infection present on admission CXR neg for acute changes will be discharged on Cipro based on sensitivities Low risk for COVID, no testing done (2) Elevated troponin: 0.115, EKG sinus tachy Likely demand ischemia in the face of illness (3) Fall: PT/OT feel patient should return home with home health Last fall was a year ago Has in home aides at baseline b/l knee and R elbow XR neg Did not hit head, no syncope Morbid obesity is likely contributing to falls and injuries (4) Hypomagnesemia: Replete (5) Hypokalemia: Replete (6) Diabetes mellitus, type 2: Resume home meds and carbohydrate conservative strategy A1c 6.3 (7) Hyperlipidemia: Atorvastatin 40 (8) GERD (gastroesophageal reflux disease): Typically not on any home medication he is requesting Maalox (9) Peripheral neuropathy: Gabapentin 600 3 times daily (10) Deep vein thrombosis: Hx of DVT in LL2009 No current anticoagulation (11) Sleep apnea: CPAP as at home Total Time Total Time Spent Total Time Spent (In Minutes): It required greater than 30 minutes to prepare this patient for discharge Discharge Plan Discharge Items Patient Disposition: Home - Home Health Services Reason For Visit: SEPSIS Discharge Diagnosis: 1) sepsis 2) pseudomonas urine infection present on admission 3) intertrigo Activity: Resume your previous activity Non-emergency contact: Primary Care Provider Call non-emergency contact if: you have any medication questions Follow-up/Referrals: Gabriella Maher [Primary Care Provider] - 10/23/19 3:10 pm (If you need to change this appointment, please call [phone].) Diet: Regular Addtl Attending Provider Instructions: plenty of fluids, rest and recover use powder to rash until rash has resolved Pending Studies at Discharge: No Stand-Alone Forms: My [employer], Smoking Cessation Medications and DC Order Prescriptions: New Desenex 2 % Powder 1 applic EXT BID Qty: 85 RF: 5 ciprofloxacin HCl 500 mg tablet 500 mg PO BID Qty: 22 RF: 0 Continued atorvastatin 40 mg Tablet 40 mg PO HS RF: 0 oxybutynin chloride 5 mg Tablet 5 mg PO BID RF: 0 fluticasone propionate 50 mcg/actuation [place],Suspension 1 spray INTRANASAL DAILY RF: 0 Durezol 0.05 % Drops 1 drp OPR QAM RF: 0 Tradjenta 5 mg Tablet 5 mg PO DAILY RF: 0 Gralise 600 mg Tablet Extended Release 24 Hr 1,800 mg PO QAM RF: 0 meloxicam 15 mg Tablet 15 mg PO DAILY RF: 0 calcium carbonate [Tums] 200 mg calcium (500 mg) Tablet,Chewable 200 mg PO BID PRN (Reason: Acid Reflux) RF: 0 [place]-3 350 mg-235 mg- 90 mg-597 mg Capsule,Delayed Release(Dr/Ec) 2 cap PO BID RF: 0 triamcinolone acetonide 0.1 % cream 1 applic TOPICAL DIRECTED RF: 0 valsartan-hydrochlorothiazide [Diovan HCT] 320-12.5 mg tablet 1 tab PO QAM RF: 0 Discharge Orders: Discharge Order (Routine); Ordered 10/18/19 Ordered By: Albino Meadows Admission Data Admit Date/Time: 10/16/19 18:20 Attending Provider: Albino Meadows Admit Provider: Olga Raphael Primary Care Provider: Gabriella Maher Other Providers: Olga Raphael ; [place] Other Interventions: Discharge Summary Assessment (RN) Last Done: 10/18/19 13:07 DC Date/Time DO NOT enter until pt leaves facility: 10/18/19 14:15 Coding Level of Care Code D/C Day Management >30 mins Diagnoses Sepsis A41.9 Elevated troponin R79.89 Fall W19.XXXA Hypomagnesemia E83.42 Hypokalemia E87.6 Diabetes mellitus, type 2 E11.9 Hyperlipidemia E78.5 GERD (gastroesophageal reflux disease) K21.9 Peripheral neuropathy G62.9 Deep vein thrombosis I82.409 Sleep apnea G47.30
== END 2019-10-18 14:15 | disposition home health service (06) | DRG 872 ==
LOC: ED 14:25 → 2N 18:20 → SUATTDRO 18:20 → 2N 19:23